=== PATIENT | female | born 1950 | race Caucasian/White ===

== ENCOUNTER 2024-12-21 00:20 | Day surgery (SDC) | payer MEDICARE, SELFPAY ==
[2024-12-11 14:51] VITALS: BMI 28.4
[2024-12-21 09:49] VITALS: BP 157/86; PULSE 86; RESP 18; TEMP 36.1; O2SAT 97; BMI 27.9
[2024-12-21] MEDS: LACTATED RINGERS 1,000 ML 150 ML IV CONT (09:57)
--- NOTE | 2024-12-21 10:16 | WPDANESEPPF ---
Anes - Initial Pre Proc Eval Procedure: Operation Date: 12/21/24 11:00 Proposed Procedures p Screening Colonoscopy - Demetris Alvarado MD Date/Time: 12/21/24 10:16 Surgeon: Demetris Alvarado MD Pre Op Diagnosis: Personal history of colon polyps, unspecified Patient Data Age: 74 Gender: F Height: 1.68 m Weight: 78.5 kg Last Vital Signs Temp 36.1 C L 12/21/24 09:49 Pulse 86 12/21/24 09:49 Resp 18 12/21/24 09:49 BP 157/86 H 12/21/24 09:49 Pulse Ox 97 12/21/24 09:49 O2 Del Method Room Air 12/21/24 09:49 Allergies Allergy/AdvReac Type Severity Reaction Status Date / Time CHLOE Inhibitors Allergy Intermediate Cough Verified 12/21/24 09:48 Home Medications ?Medication ?Instructions ?Recorded ?Confirmed ?Type escitalopram oxalate 20 mg tablet 10 mg (1/2 x 20 mg) PO DAILY #90 09/20/24 12/21/24 Rx (Lexapro) tabs losartan 25 mg tablet 25 mg PO DAILY #90 tabs 09/20/24 12/21/24 Rx rosuvastatin 20 mg tablet See Rx Instructions .Route 09/20/24 12/21/24 Rx .COMPLEX #90 tabs Patient hx anesthesia problems: none Family hx anesthesia problems: none Results Review: All pre-operative results and documents have been reviewed as part of the pre-operative evaluation. [facility] Past Medical History Medical History Overweight with body mass index (BMI) of 28 to 28.9 in adult Adult BMI 29.0-29.9 kg/sq m Diabetes type 2, controlled Family History Family History Mother Hypertension Family history of diabetes mellitus in first degree relative Family history of coronary artery disease Family history of malignant neoplasm of breast in first degree relative Father Cerebrovascular accident Malignant neoplasm of prostate Sibling Family history of diabetes mellitus in first degree relative Social History Social History Smoking packs per day: 1 Smoking cigarettes per day: 20.0 Years smoked: 10 Smoking pack-years: 10.00 Smoking status: Former smoker Second hand tobacco smoke exposure: No Alcohol intake: never Substance use: never Substance use type: does not use Lack of Transportation: No Lack of Food: Never True Current Housing: I Have Housing Concerned About Future Housing: No Difficulty Paying Gas/Electric Bills: No Difficulty Paying for Meds: No Currently Unemployed: No Education: High School Diploma/GED Difficulty w/ Childcare or Family Care: No Living arrangements: alone Spiritual care concerns: No Anes - Eval Final PreProcedure Day of Procedure 12/21/24 10:16 Patient weight: overweight Heart: regular rate and rhythm Lungs: clear to auscultation Airway: Mallampati scale class III Neurological: alert and oriented Last oral intake: >/= 8 hours ASA classification: III Emergent: no Anesthetic plan: proceed Anesthesia type and monitoring: general GIVS and standard monitoring Results Review: All pre-operative results and documents have been reviewed as part of the pre-operative evaluation. Informed Consent: The patient's anesthetic plan and its attendant risks and benefits were discussed with the patient/family/POA. Questions were solicited and answers provided to the satisfaction of the patient/family/POA.
--- NOTE | 2024-12-21 10:19 | PM.HPGS ---
History of Present Illness History of Present Illness Consent: Risks, benefits, and alternatives have been discussed and questions answered. Patient agrees to proceed with procedure. Chief complaint: Personal history of colon polyps, unspecified Narrative: Jasmin Reyes is a 74 year old female with colon polyp in 2017 Review of Systems Review of Systems: All systems reviewed & are unremarkable except as noted in HPI and below PMFSH Past Medical History Medical History (Updated 12/21/24 @ 10:19 by Demetris Alvarado MD) Colon polyp Overweight with body mass index (BMI) of 28 to 28.9 in adult Adult BMI 29.0-29.9 kg/sq m Diabetes type 2, controlled Family History Family History Mother Hypertension Family history of diabetes mellitus in first degree relative Family history of coronary artery disease Family history of malignant neoplasm of breast in first degree relative Father Cerebrovascular accident Malignant neoplasm of prostate Sibling Family history of diabetes mellitus in first degree relative Social History Social History Smoking packs per day: 1 Smoking cigarettes per day: 20.0 Years smoked: 10 Smoking pack-years: 10.00 Smoking status: Former smoker Second hand tobacco smoke exposure: No Alcohol intake: never Substance use: never Substance use type: does not use Lack of Transportation: No Lack of Food: Never True Current Housing: I Have Housing Concerned About Future Housing: No Difficulty Paying Gas/Electric Bills: No Difficulty Paying for Meds: No Currently Unemployed: No Education: High School Diploma/GED Difficulty w/ Childcare or Family Care: No Living arrangements: alone Spiritual care concerns: No Meds Home Medications and Allergies Home Medications ?Medication ?Instructions ?Recorded ?Confirmed ?Type escitalopram oxalate 20 mg tablet 10 mg (1/2 x 20 mg) PO DAILY #90 09/20/24 12/21/24 Rx (Lexapro) tabs losartan 25 mg tablet 25 mg PO DAILY #90 tabs 09/20/24 12/21/24 Rx rosuvastatin 20 mg tablet See Rx Instructions .Route 09/20/24 12/21/24 Rx .COMPLEX #90 tabs Allergies Allergy/AdvReac Type Severity Reaction Status Date / Time CHLOE Inhibitors Allergy Intermediate Cough Verified 12/21/24 09:48 Vital Signs Vital Signs - 24 hr 12/21/24 09:49 Temperature 97 F L Pulse Rate 86 Respiratory Rate 18 Blood Pressure 157/86 H Pulse Oximetry 97 Oxygen Delivery Room Air Exam Const: General: comfortable and no acute distress HENMT: Face/Nose/Sinus: Normal nares present Eyes: General: appearance normal, both eyes and all related structures Resp: Auscultation: clear to auscultation bilaterally Cardio: Rate: regular rate Rhythm: regular rhythm GI: Inspection: non-distended GI Palp: Yes Soft to palpation Skin: General skin exam: normal color Extrem: General: normal to inspection Psych: Mental Status: mental status grossly normal Assessment and Plan Assessment and plan (1) Family history of colon cancer in father: Code(s): Z80.0 - Family history of malignant neoplasm of digestive organs Status: Acute (2) Colon polyp: Code(s): K63.5 - Polyp of colon Status: Acute Assessment and Plan: colonoscopy
--- NOTE | 2024-12-21 10:50 | SUR.OPER ---
Excoriation to gluteal folds and bilateral buttocks noted intraoperatively.
[2024-12-21 10:52] VITALS: BP 102/74; PULSE 73; RESP 20; O2SAT 100
--- NOTE | 2024-12-21 10:52 | S_PTH ---
PATIENT: Jasmin Reyes LOC: [facility]#:[id number] AGE/SX: 74/F ROOM: RE12/21/[address]: Demetris Alvarado MD : 1950 BED: DIS: 12/21/2024 SPEC #: [id number] RECD: 12/21/24 11:29 STATUS: VIKA RENeri #: [id number] WENDI: 12/21/24 10:[address]: Demetris Alvarado DEPT: [facility] Surgical RECD BY: Rigo Negrete ENTERED: 12/21/24 11:30 SP TYPE: Surgical OTHR DR: Joni Morocho MD Tissues: A - Colon Polypectomy B - Colon Polypectomy C - Colon Polypectomy Procedures: Hematoxylin and Eosin Stain Gross and Microscopic Level 4
[2024-12-21 11:02] VITALS: BP 167/63; PULSE 66; RESP 20; O2SAT 100
[2024-12-21 11:12] VITALS: BP 168/69; PULSE 70; RESP 20; O2SAT 100
== END 2024-12-21 11:37 | disposition home or self-care (01) ==
PROVIDERS: PCP Family Medicine; Visit Provider Internal Medicine Gastroenterology
PROC: 0DJD8ZZ Inspection of Lower Intestinal Tract, Via Natural or Artificial Opening Endoscopic (ICD-10-PCS; CPT 45378; principal; 2024-12-21 11:00)
DX: Z12.11 Encounter for screening for malignant neoplasm of colon (principal); D12.2 Benign neoplasm of ascending colon; D12.3 Benign neoplasm of transverse colon; D12.4 Benign neoplasm of descending colon; K64.8 Other hemorrhoids; E11.9 Type 2 diabetes mellitus without complications; Z87.891 Personal history of nicotine dependence; Z80.3 Family history of malignant neoplasm of breast; Z80.42 Family history of malignant neoplasm of prostate; Z82.49 Family history of ischemic heart disease and other diseases of the circulatory system
CPT/HCPCS: 45390; 88305; J2704; J7120

== ENCOUNTER 2025-01-16 08:47 | Outpatient (CLI) | payer MEDICARE, SELFPAY ==
--- OUTSIDE RECORDS SUMMARY | 2025-01-16 09:14 | XMS_ITS | Clinical Summary ---
Author Organization [facility] Address [address], [address] [place] [address] Phone Care Team Providers Care Trimming Inspector Name Role Phone Joni Morocho MD Primary Care Provider [phone] Allergies No known active allergies Medications atorvastatin (LIPITOR) 10 MG Tablet Take 10 mg by mouth daily. Active escitalopram (LEXAPRO) 10 MG Tablet Take 10 mg by mouth daily. Active Fenofibrate 120 MG Tablet Take 134 mg by mouth daily. Active Cholecalciferol (VITAMIN D-3 SUPER STRENGTH) 2000 UNIT Tablet Take by mouth daily. Active BIOTIN FORTE PO Take by mouth. Active Active Problems Patient Care Coordination No te Formatting of this note migh t be different from the original. 07/29/16: Does not qualify for OCM. 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 Immunizations Immunization Administration Dates Next Due Influenza Vaccine greater than 3 yrs 06/01/2016 Pneumococcal Vaccine Adult - 23 Valent 7 Family History Medical History Relation Name Comments No Known Problems Brother Cancer Father prostate mets t o bone 70's Stroke Father Cancer Maternal Grandmother stomach cancer 50's Cancer Mother breast and bone 50's Depression Mother Diabetes Mother Heart Attack Mother Renal Failure Mother Thyroid Disease Mother Cancer Paternal Grandmother breast cancer 60's Diabetes Sister Lupus Sister Rheumatoid Arthritis Sister Relation Name Status Comments Brother Father Maternal Grandmother Mother Paternal Grandmother Sister Alive Social History Tobacco Use Types Packs/Day Years Used Date Smoking Tobacco: Former Cigarettes 0 Q uit: 12/12/1990 Alcohol Use Standard Drinks/Week Comments No 0 (1 standard drink = 0.6 oz pur e alcohol) Comments Unknown Sex and Gender Information Value Date Recorded Sex Assigned at Not on file Legal Sex Female 3:53 PM CDT Gender Identity Not on file Sexual Orientation Not on file Last Filed Vital Signs Vital Sign Reading Time Taken Comments Blood Pressure 138/72 07/29/2016 2:06 PM CDT Pulse 83 07/29/2016 2:06 PM CDT Temperature 36.7 C (98 F) 07/29/2016 2:06 PM CDT Respiratory Rate - - Oxygen Saturation 97% 07/29/2016 2:06 PM CDT Inhaled Oxygen Concentration - - Weight 90.3 kg (199 lb) 07/29/2016 2:06 PM CDT Height 165.1 cm (5' 5) 01/29/2016 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 Body Mass Index 33.12 01/29/2016 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 Plan of Treatment Health Maintenance Due Date Last Done Comments Hepatitis C Virus (HCV) Screening 1950 TdaP Immunization 1950 Cologuard 06/18/1995 Colonoscopy 06/18/1995 Colorectal Cancer Screening 06/18/1995 Immunochemical Fecal Occult Blood 06/18/1995 Zoster Immunization (1 of 2) 2000 Medicare Initial AWV [id number] 06/12/2016 Influenza Immunization (#1) 11/12/2024/2 03/2016, 11/28/2015 SARS-COV-2 Immunization ( season) 2024 Respiratory Syncytial Virus (RSV) Immunization (Adult) (1 - 1-dose 75+ series) 2025 Pneumococcal Immunization (5 0+ years) Completed 06/01/2016, 03/11/2016 Pneumococcal Immunization Combined Discontinued 06/01/2016, 03/11/2016 Hepatitis B Immunization Aged Out No longer eligible based on patient's age to complete this topic Human Papillomavirus (HPV) Immunization Aged Out No longer eligible based on patient's age to complete this topic Meningococcal Immunization (ACWY) Aged Out No longer eligible based on patient's age to complete this topic Rotavirus Immunization Aged Out No lo nger eligible based on patient's age to complete this topic Insurance * Guarantor: Jasmin Reyes Account Type Relation to Patient Date of Phone Billing Address Personal/Family Self 1950 [phone] (Work) [address] [place] [address] MEDICARE [employer] MEDICARE SUPP [employer] Care Teams Trimming Inspector Relationship Specialty Start Date End Date Joni Morocho MD [address] [place] [address] PCP - General Family Medicine 01/28/16
--- NOTE | 2025-01-16 09:36 | ECG_ITS ---
Test Date: 2025-01-16 09:49:19 Measurements Intervals [place] Rate: 71 P: 58 [place]: 191 QRS: -38 QRSD: 90 T: 56 QT: 395 QTc: 431 Interpretive Statements SINUS RHYTHM MARKED LEFT AXIS DEVIATION [QRS AXIS < -30] MINIMAL VOLTAGE CRITERIA FOR LVH, CONSIDER NORMAL VARIANT [MEETS CRITERIA IN ONE OF: R(aVL), S(V1), R(V5), R(V5/V6)+S(V1)] ABNORMAL ECG No previous ECG available for comparison Electronically Signed On 01-16-2025 14:40:10 OTOLARYNGOLOGY PHYSICIAN by Wojciech Hwang M.D.
[2025-01-16 10:15] LABS: INR 1.0; Prothrombin Time 13.3 Seconds (11.1-14.7)
[2025-01-16 10:16] LABS: Partial Thromboplastin Time 22.7 Seconds (22.3-36.8)
[2025-01-16 10:50] LABS: Carcinoembryonic Antigen 1.1 ng/mL (0.0-3.0)
== END 2025-01-16 08:48 | disposition home or self-care (01) ==
LOC: ANHSURGERY 08:51
PROVIDERS: Anesthesiology; PCP Family Medicine; Visit Provider Surgery
DX: K63.5 Polyp of colon (principal); E78.2 Mixed hyperlipidemia; I12.9 Hypertensive chronic kidney disease with stage 1 through stage 4 chronic kidney disease, or unspecified chronic kidney disease; N18.9 Chronic kidney disease, unspecified; R94.31 Abnormal electrocardiogram [ECG] [EKG]
CPT/HCPCS: 36415; 82378; 85610; 85730; 86850; 86900; 86901; 93005

== ENCOUNTER 2025-01-25 18:30 | Inpatient (IN) | payer MEDICARE, SELFPAY ==
[2025-01-16 08:59] VITALS: BP 123/61; PULSE 80; RESP 16; TEMP 37.3; O2SAT 98; BMI 28.3
--- NOTE | 2025-01-16 09:16 | PC.NURSE ---
[facility] has started construction of its new state of the art ER which will open Spring 2026. With this, we anticipate parking may be a challenge for some our surgical patients and families. Parking spaces are limited but are available for all Surgical, obstetrics, and ER patients sharing this lot. If you arrive and find you are having a hard time finding a parking space, please note that we understand the challenges, please drive around the hospital and park near Hospital Entrance 1. When you enter this entrance, you can ask a volunteer to direct or take you back to the surgical waiting area to check in. We appreciate everyone?s understanding of these expected challenges while we build for your future. Report to the Outpatient Waiting Room, entrance under the green pavilion located off [address], at time __0830am on date __01/25/25 . Planned Procedure Time: _1030am .? Time changes happen often and if your time is changed the preop area will call you the afternoon before. - You and your visitor will be asked to self-screen and do not enter if you have any COVID symptoms. Please call surgeon if you need to reschedule. - A mask is optional within the hospital at this time. Patients may have clear liquids (water, carbonated beverages, clear teas, apple juice) until 3 hours prior to surgery with a maximum of 20 ounces. - No food per Dr per Patrick- until time of surgery and no smoking, or chewing tobacco (or any form of nicotine). No chewing gum, candy or mints. (0730am) Take only the following medications with a SIP of water on the morning of surgery: Excitalopram & Antibiotics as ordered PREOP ( Ensure as ordered) DO NOT STOP ANY OF YOUR OTHER PRESCRIPTION MEDICATIONS PRIOR TO SURGERY EXCEPT THE FOLLOWING Hold all vitamins and supplements for 3 days per anesthesiologist. Date of last dose 01/21/25 Medications to discontinue per physician NONE Date to take last dose NONE Please no make-up, nail romansh, hairspray, perfume, deodorant, or body powder the day of surgery.? No jewelry (including any body piercings) or valuables the day of surgery, leave them at home.? Please take a shower or bath the night before, or the morning of, surgery with an antibacterial soap/HIBICLEANSE SCRUB-. Wear comfortable, loose fitting clothing.? Overnight bag - Jewelry must be removed prior to entering the operating room.? Rings and piercings that are not removed may be cut off. - The hospital will not accept responsibility for valuables.? - Please leave all valuables, including medications, at home the day of surgery. If you are going home after surgery, a licensed pickup driver must drive you home.? - NO public transportation without another adult if you receive anesthesia. - We recommend that an adult stay with you for 24 hours following discharge. - We also recommend that you do not drive, make important decision, drink alcoholic beverages, or take any drugs that were not prescribed by your health care provider for at least 24 hours after your discharge time. Follow any additional instructions given to you from your surgeon. Pt to get BOWEL PREP and ENSURE BUNDLE today from Dr Nguyen. Telephone instructions given to ____Patient and asked if any additional questions and then verbalized understanding. Patient advised to call surgeon office or pre surgery nurse liaison [phone] if any additional questions.
[2025-01-25] VITALS (9 sets, daily range): BP systolic 136–164; BP diastolic 51–89; PULSE 64–80; RESP 11–18; TEMP 36.3–36.9; O2SAT 93–100; BMI 27.9
--- NOTE | 2025-01-25 09:11 | WPDANESEPPF ---
Anes - Initial Pre Proc Eval Procedure: Operation Date: 01/25/25 10:30 Proposed Procedures p Robotic Assisted Laparoscopic Right Isaak-Colectomy, Possible Open - Mark Nguyen MD Date/Time: 01/25/25 09:11 Surgeon: Mark Nguyen MD Pre Op Diagnosis: right colon polyp with higrade dysplasia Patient Data Age: 74 Gender: F Height: 1.68 m Weight: 79.7 kg Last Vital Signs Temp 99.1 F 01/16/25 08:59 Pulse 80 01/16/25 08:59 Resp 16 01/16/25 08:59 BP 123/61 01/16/25 08:59 Pulse Ox 98 01/16/25 08:59 O2 Del Method Room Air 01/16/25 08:59 Allergies Allergy/AdvReac Type Severity Reaction Status Date / Time CHLOE Inhibitors Allergy Intermediate Cough Verified 01/16/25 08:57 Home Medications ?Medication ?Instructions ?Recorded ?Confirmed ?Type escitalopram oxalate 20 mg tablet 10 mg (1/2 x 20 mg) PO DAILY #90 09/20/24 01/16/25 Rx (Lexapro) tabs losartan 25 mg tablet 25 mg PO DAILY #90 tabs 09/20/24 01/16/25 Rx rosuvastatin 20 mg tablet See Rx Instructions .Route 09/20/24 01/16/25 Rx .COMPLEX #90 tabs calcium citrate 12,000 mg PO DAILY 01/02/25 01/25/25 History mecobalamin (vitamin B12) 1,000 1,000 mcg PO DAILY 01/02/25 01/25/25 History mcg chewable tablet gyvfutjeubls-Ry-mdag-minerals 18 1 tablet PO .qd 01/02/25 01/25/25 History mg-0.4 mg tablet ciprofloxacin HCl 500 mg tablet 500 mg PO .COMPLEX #1 tablet 01/03/25 01/16/25 Rx metronidazole 500 mg tablet 500 mg PO .COMPLEX #3 tabs 01/03/25 01/16/25 Rx Patient hx anesthesia problems: none Family hx anesthesia problems: none Results Review: All pre-operative results and documents have been reviewed as part of the pre-operative evaluation. 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 Perez Family History Family History Mother Hypertension Family history of diabetes mellitus in first degree relative Family history of coronary artery disease Family history of malignant neoplasm of breast in first degree relative Father Cerebrovascular accident Malignant neoplasm of prostate Sibling Family history of diabetes mellitus in first degree relative Social History Social History Smoking packs per day: 1 Smoking cigarettes per day: 20.0 Years smoked: 10 Smoking pack-years: 10.00 Smoking status: Former smoker Tobacco type: cigarettes Second hand tobacco smoke exposure: No Alcohol intake: never Substance use: never Substance use type: does not use Lack of Transportation: No Lack of Food: Never True Current Housing: I Have Housing Concerned About Future Housing: No Difficulty Paying Gas/Electric Bills: No Difficulty Paying for Meds: No Currently Unemployed: No Education: High School Diploma/GED Difficulty w/ Childcare or Family Care: No Living arrangements: alone Spiritual care concerns: No Anes - Eval Final PreProcedure Day of Procedure 01/25/25 09:11 Patient weight: normal Heart: regular rate and rhythm Lungs: clear to auscultation Airway: Mallampati scale class II Neurological: alert and oriented Last oral intake: >/= 8 hours ASA classification: III Emergent: no Anesthetic plan: proceed Anesthesia type and monitoring: general ETT and standard monitoring Results Review: All pre-operative results and documents have been reviewed as part of the pre-operative evaluation. Informed Consent: The patient's anesthetic plan and its attendant risks and benefits were discussed with the patient/family/POA. Questions were solicited and answers provided to the satisfaction of the patient/family/POA.
[2025-01-25] MEDS: ACETAMINOPHEN 500 MG TABLET 1000 MG PO (09:30)
[2025-01-25] MEDS: KETOROLAC 15 MG/ML VIAL (*BKC) IV PUSH (09:30)
[2025-01-25] MEDS: LACTATED RINGERS 1,000 ML 30 ML IV CONT ×3 (09:30→16:23)
--- NOTE | 2025-01-25 09:44 | WPDHPUPDATE1 ---
History and Physical Update Update Date/Time: 01/25/25 09:44 History and Physical has been reviewed, including an updated exam of the patient. There are NO changes in the patient's condition. Risks, benefits, and alternatives have been discussed and questions answered. Patient agrees to proceed with procedure.
[2025-01-25] MEDS: ALVIMOPAN 12 MG CAPSULE PO (10:00)
[2025-01-25] MEDS: ceFAZolin 2 GM in SODIUM CHLORIDE 0.9% IV 50 ML 100 ML IVPB (10:30)
[2025-01-25] MEDS: metroNIDAZOLE 500 MG/ISO 100ML 500 MG/100 ML BAG 100 MG IVPB (10:45)
[2025-01-25] MEDS: LIDO 1%/EPINEPHRINE 1:100,000 20 ML VIAL 30 ML INFILTRATE (11:29)
[2025-01-25] MEDS: BUPivacaine HCL 0.5% 10 ML AMP 30 ML INFILTRATE (11:30)
--- NOTE | 2025-01-25 15:01 | S_PTH ---
PATIENT: Jasmin Reyes LOC: [id number] U#:[id number] AGE/SX: 74/F ROOM: 344 RE01/25/[address]: Joey Metz MD : 1950 BED: 01 DIS: 01/27/2025 SPEC #: [id number] RECD: 01/28/25 07:28 STATUS: VIKA RENeri #: [id number] WENDI: 01/25/25 15:[address]: Mark Nguyen DEPT: [facility] Surgical RECD BY: Martha Buitrago ENTERED: 01/28/25 07:28 SP TYPE: Surgical OTHR DR: Joni Morocho MD Tissues: A - Colon Segment NonTumor Procedures: Hematoxylin and Eosin Stain Gross and Microscopic Level 5
[2025-01-25] MEDS: fentaNYL CITRATE INJ (*CRX) 100 MCG/2 ML VIAL 25 MCG IV PUSH ×4 (17:13→17:52)
--- NOTE | 2025-01-25 17:23 | W.PM.PROC2 ---
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 Surgeon Mark Nguyen MD Insulation Helper Danny Mclaughlin DO Anesthesia General Indications Patient is a 74-year-old female who recently had a colonoscopy showing 3 polyps in her colon. Two of the polyps, the 1st being in the mid transverse colon was completely excised and it was a benign villous adenoma. A sigmoid polyp was completely removed it was benign as well. 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 She presents now for a elective right hemicolectomy via a robotic assisted laparoscopic approach to remove the premalignant polyp. Findings The patient previously had a open cholecystectomy over 50 years ago done through a right paramedian incision. There were copious adhesions of omentum to the anterior abdominal wall and to the right half of the liver resulting in need for extensive abdominal adhesiolysis lasting for greater than 45minutes of the total procedure time. The patient did have an old tattoo in the mid transverse colon from a prior polyp excision during a colonoscopy. The most recent injection of ink in the right ascending colon was easily seen marking the pre malignant polyp which needed to be removed during this procedure. There did not appear to be any extension of a malignant process extending into the pericolic fat. No enlarged lymph nodes were seen in the ileocolic chain in the mesentery. No liver masses or peritoneal studding was seen. The specimen was opened on the back table after it was extracted from the abdomen. The polyp was seen in the mid to distal ascending right colon at approximately the hepatic flexure. It was approximately 6cm away from the distal bowel resection margin and greater than 10cm away from the proximal bowel resection margin. Description of Procedure After informed consent was obtained patient was brought to the operating room where she was placed in the supine position and general endotracheal anesthesia was administered. A Llamas catheter was placed decompress the bladder and orogastric tube was placed decompress the stomach. The abdomen was then prepped and draped usual sterile fashion. I 1st started by entering the abdomen the left upper quadrant utilizing a 5mm Optiview port. Once inside the abdomen insufflated to adequate pneumoperitoneum of 15mmHg of CO2. I could then see copious amounts of adhesions of the omentum to the anterior abdominal wall into the falciform ligament as well as the right lobe of the liver obscuring my view of the proximal part of the transverse colon. I then placed additional left-sided 8mm robotic trocar ports and then through these trocar ports utilizing standard laparoscopic roxi which were energized I proceeded to perform an extensive adhesiolysis of the omentum off of the epigastric region of the anterior abdominal wall and falciform ligament. Once this was done I then placed a 12mm robotic trocar port left upper quadrant and switched out the 5mm trocar port to an 8mm robotic trocar port. The [employer] robot was then brought to the patient's bedside and the robotic arms were attached robotic ports. I then sent down the robotic console to perform further adhesiolysis of the omentum off of the right lobe of the liver to further visualize the distal right ascending colon and proximal transverse colon. Utilizing the robotic vessel sealer I then proceeded to divide omental adhesions to the falciform ligament and to the edge of the right lobe liver which extended down into the gallbladder fossa which the omentum was very adherent to due to the previous open cholecystectomy. This adhesiolysis took at least 45minutes of the total operative time to perform. Once this was done I then turned my attention towards resecting the right colon. The small bowel was moved to the left side of the abdomen and down into the pelvis. This exposed the mesentery to the right colon and cecum. Then with traction with a robotic grasper on to the cecum the mesentery was placed on tension and I was able to identify the ileocolic pedicle. Utilizing combination of robotic roxi and robotic vessel sealer dissection I was able to circumferentially dissect out the ileocolic pedicle and divided it with a vascular load to the robotic stapler. I then proceeded to dissect laterally underneath the ascending colon to the avascular plane between the mesentery and Gerota's fascia. I extended the dissection through the mesentery to the distal ascending colon hepatic flexure under identified the 2nd portion of duodenum and protected this without injury throughout the rest of the procedure. I then saw that the proximal transverse colon just after the hepatic flexure was well away from the ink that marked the polyp and after dividing and mobilizing the omentum off of the proximal transverse colon utilizing the LigaSure device and made a defect through the mesentery to the proximal 1/3 of the transverse colon utilizing the vessel sealer. Through this mesenteric defect I then introduced a 60mm robotic HOMER stapler and then divided proximal transverse colon. I then turned my attention towards division of the ileum. I mobilized terminal ileum utilizing the vessel sealer and then made a defect through the mesentery to the terminal ileum about 10cm proximal to the ileocecal valve. I then divided the terminal ileum with a blue reload to the robotic stapler. I then proceeded to further divide the mesentery between the 2 bowel resection points. I carefully avoided injury to the 2nd portion of duodenum during this division of the mesentery. The right branch of the middle colic artery was divided with the vessel sealer. I did not appreciate any enlarged lymph nodes along the ileocolic chain or the mesentery to the right colon. Once the mesentery was completely divided the lateral peritoneal attachments to the right colon were divided with the vessel sealer the terminal ileum, cecum, right ascending colon, and proximal transverse colon with the attached mesentery was then placed into the pelvis. I then had Anesthesia give the patient 3cc of ICG dye intravenously. Then utilizing firefly on the [employer] robot I was able to assess perfusion to staple lines of I bowel resection lines. There was good perfusion to the staple lines on both the terminal ileum and the transverse colon. I then brought the 2 ends of the bowel together in a [id number] isoperistaltic fashion. Stay sutures were placed with 3 0 Vicryl sutures robotically to approximate the 2 ends of the bowel and then an enterotomy was made in the small bowel and then the transverse colon utilizing energized roxi. A reload to the 60mm HOMER robotic stapler was then used to create a common channel between the 2 ends of the bowel. The resulting enterotomy on top of the anastomosis was then closed utilizing a running 3-0 absorbable V lock suture in 2 layers. I once again checked perfusion of the anastomosis and there appeared to be good perfusion under firefly. I then checked and there was no significant bleeding and the anastomosis was under no tension. I then proceeded to place a long [place] laparoscopic grasper onto the end of the resected terminal ileum and right colon. We then had the de [employer] robot undocked from the patient's bedside and robotic instruments removed from the abdomen. I then scrubbed back into the procedure and made a small 5cm low transverse Pfannenstiel incision and dissected down through the subcutaneous tissue electrocautery. Once we reached the anterior rectus fascia this was incised longitudinally with electrocautery and the muscle fibers were then split until we reached the transversalis fascia and peritoneum. This was opened with electrocautery and then a wound protector was placed into the abdomen to aid with retraction. We then delivered the resected end of the terminal ileum up through the wound protector and then very carefully removed the resected specimen out of the abdomen. On the back table I then proceeded to open the specimen identified the polyp which was approximately 6cm proximal to the distal colonic resection margin and greater than 10cm distal to the terminal ileum resection margin. The specimen was then passed off table sent to pathology for examination. I then proceeded to irrigate out the incision and hemostasis was good. The incision was then closed with a 0 PDS suture placed in the anterior rectus fascia. The subcutaneous tissues then irrigated sterile saline solution and closed with interrupted 3-0 Vicryl sutures. Skin edges were approximated utilizing a running subcuticular 4-0 Monocryl suture. We then insufflated the abdomen reach it pneumoperitoneum. Then utilizing standard laparoscopic we then proceeded to place transfascial sutures with a suture assist device under direct visualization to close the 12mm left upper quadrant trocar port fascial defect. All the port sites were then closed utilizing a running subcu 4-0 Monocryl suture. Skin glue was applied. Incision then injected with 1% lidocaine mixed with 0.5% Marcaine with epinephrine for postoperative pain relief. The patient tolerated the procedure well no complications. All sponges, needles, and instrument counts were correct at the end procedure. EBL was _50__cc. The patient was awakened and taken to recovery in stable and satisfactory condition. Implants None Estimated Blood Loss 50 IV Fluids 2,500 Urine Output 100 Drains No Packing No Pathology Yes ( small amount of terminal ileum, cecum, right ascending colon, and proximal transverse colon sent to pathology) Complications No immediate complications Condition Stable Disposition PACU [facility] Billing Surgery - Charge Forward: Surgery Billing
--- NOTE | 2025-01-25 18:17 | ADMGEN ---
This patient, Jasmin Reyes, was admitted to Medical Room 344-01. Patient/family oriented to hospital policies and general routines including ID bracelet, bed and alarms, visiting hours, pain management, procedures, bathroom and other care routines, personal items, smoking policy, room service/diet, and visiting hours. Information on how to activate the Rapid Response Team has been discussed. Patient/Family are encouraged to report perceived risks to care and to ask questions if they do not understand what they are told or what they should do.
[2025-01-25] MEDS: LACTATED RINGERS 1,000 ML 130 ML IV CONT (18:44)
[2025-01-25] MEDS: THERAPEUTIC MULTIVITAMINS/MINERALS TAB (*BKC) 1 TABLET PO (18:44)
[2025-01-25] MEDS: IBUPROFEN IV 800 MG/200 ML 800 MG/200 ML BAG 400 MG IVPB (18:45)
[2025-01-25] MEDS: ceFAZolin 1 GM in SODIUM CHLORIDE 0.9% IV 50 ML 100 ML IVPB (19:48)
[2025-01-25] MEDS: ROSUVASTATIN 20 MG TABLET BY MOUTH (21:40)
[2025-01-26] MEDS: oxyCODONE HCL (*CRX) 5 MG TAB IR PO (00:31)
[2025-01-26] MEDS: IBUPROFEN IV 800 MG/200 ML 800 MG/200 ML BAG 400 MG IVPB ×3 (02:29→18:06)
[2025-01-26] MEDS: LACTATED RINGERS 1,000 ML 130 ML IV CONT ×2 (02:30→12:15)
[2025-01-26] MEDS: ceFAZolin 1 GM in SODIUM CHLORIDE 0.9% IV 50 ML 100 ML IVPB ×2 (03:45→11:07)
[2025-01-26 04:35] VITALS: BP 152/67; PULSE 66; RESP 16; TEMP 36.5; O2SAT 96
[2025-01-26 05:31] LABS: Hematocrit 32.8 % (37.0-47.0); Hemoglobin 10.6 g/dL (12.0-15.0); Mean Corpuscular HGB Conc 32.3 g/dl (32-36); Mean Corpuscular Hemoglobin 29.4 pg (26-34); Mean Corpuscular Volume 90.9 fl (80-100); Platelet Count Result 166 k/mm3 (150-375); Red Blood Count 3.61 M/mm3 (4.2-5.4); White Blood Count 11.5 K/mm3 (4.5-10.0)
[2025-01-26 05:54] LABS: Anion Gap 5 mmol/L (4-12); Blood Urea Nitrogen 19 mg/dL (7-17); Calcium 8.7 mg/dL (8.4-10.2); Carbon Dioxide 26 mmol/L (22-30); Chloride 106 mmol/L (98-107); Estimated CRCL calculation 40 ml/min; Estimated Glomerular Filt Rate 45; Glucose 147 mg/dL (65-110); Potassium 4.7 mmol/L (3.4-5.0); Sodium 137 mmol/L (137-145)
[2025-01-26] MEDS: CYANOCOBALAMIN 1,000 MCG TABLET 1000 MCG PO (09:12)
[2025-01-26] MEDS: THERAPEUTIC MULTIVITAMINS/MINERALS TAB (*BKC) 1 TABLET PO (09:12)
[2025-01-26] MEDS: PANTOPRAZOLE 40 MG TABLET PO (09:12)
[2025-01-26] MEDS: ESCITALOPRAM OXALATE 10 MG TABLET PO (09:12)
[2025-01-26] MEDS: LOSARTAN POTASSIUM 25 MG TABLET PO (09:12)
[2025-01-26] MEDS: LIDOCAINE 5% PATCH 1 PATCH TRANSDERM (09:13)
[2025-01-26 09:15] VITALS: O2SAT 96
--- NOTE | 2025-01-26 10:07 | PM.PNGS ---
Progress Note: A&P Assessment and Plan (1) History of partial colectomy: Code(s): Z90.49 - Acquired absence of other specified parts of digestive tract Status: Acute Assessment and Plan: Doing great postop day 1. Will advance to full liquids. Increase ambulation. Patient reported some hematuria. I reassured her that this was most likely from the urinary catheter during surgery. I will go ahead and check a urinalysis. I expect this will go away within another 24 hours. Doing very well. (2) Colon polyp: Qualifiers: Colon polyp type: adenomatous Colon location: ascending Qualified Code(s): D12.2 - Benign neoplasm of ascending colon Code(s): K63.5 - Polyp of colon Status: Chronic Subjective Subjective Date/Time Seen: 01/26/25 10:07 Post Op day: 1 Patient reports: no new complaints, pain is less (Very little pain), tolerating liquids well, voiding w/o difficulty (But noticed some brown grit and blood in her urine), no flatus, no bowel movement and afebrile Exam Const: General: cooperative, comfortable and awake Orientation/consciousness: patient oriented x3 and No confusion GI: Inspection: non-distended, incision (Dry and healing), scar and no visible herniation GI Palp: Yes Soft to palpation and Yes Tenderness to palpation present (GI) (Mild appropriate tenderness) Auscultation: absent bowel sounds Objective Data Vital Signs Vital Signs: Vital Signs - 24 hr 01/25/25 16:07 01/25/25 16:20 01/25/25 16:35 Temperature 36.3 C L Pulse Rate 64 78 80 Respiratory Rate 11 L 13 13 Blood Pressure 139/51 L 153/52 H 164/63 H Pulse Oximetry 100 100 100 Oxygen Delivery Simple Face Mask Simple Face Mask Room Air Oxygen Flow Rate 8 8 01/25/25 16:50 01/25/25 17:05 01/25/25 17:20 Temperature Pulse Rate 75 67 75 Respiratory Rate 15 12 16 Blood Pressure 159/64 H 144/73 H 136/89 Pulse Oximetry 93 94 96 Oxygen Delivery Room Air Room Air Room Air Oxygen Flow Rate 01/25/25 17:50 01/25/25 20:00 01/25/25 21:00 Temperature 36.6 C Pulse Rate 74 77 Respiratory Rate 14 18 Blood Pressure 147/68 H 142/65 H Pulse Oximetry 95 98 Oxygen Delivery Room Air Room Air Oxygen Flow Rate 01/26/25 04:35 Temperature 36.5 C Pulse Rate 66 Respiratory Rate 16 Blood Pressure 152/67 H Pulse Oximetry 96 Oxygen Delivery Oxygen Flow Rate Intake/Output Intake/Output: Intake & Output 01/23/25 01/24/25 01/25/25 01/26/25 23:59 23:59 23:59 23:59 Intake Total 5500 1250 Output Total 100 Balance 5400 1250 Meds/Results Medications: Active Medications Generic Name Dose Route Start Last Admin Trade Name Freq PRN Reason Stop Dose Admin Acetaminophen 1,000 mg 01/25/25 17:54 Acetaminophen 500 Mg Tablet PO Q6H PRN Mild Pain (1-3) or Fever Hydrocodone Bitart/Acetaminophen 1 tab 01/25/25 17:54 Hydrocodone/Acetaminophen (*Crx) 5-325 Mg Tablet PO Q4H PRN Pain Rated 4-6 Alvimopan 12 mg 01/26/25 09:00 Alvimopan 12 Mg Capsule PO 01/27/25 09:01 Q12HR LUIS Cyanocobalamin 1,000 mcg 01/26/25 09:00 01/26/25 09:12 Cyanocobalamin 1,000 Mcg Tablet PO 1,000 mcg DAILY LUIS Administration Enoxaparin Sodium 40 mg 01/27/25 09:00 Enoxaparin 40 Mg/0.4 Ml Syringe SUB-Q DAILY LUIS Enoxaparin Sodium 40 mg 01/26/25 10:30 Enoxaparin 40 Mg/0.4 Ml Syringe SUB-Q 01/26/25 10:31 ONCE ONE Escitalopram Oxalate 10 mg 01/26/25 09:00 01/26/25 09:12 Escitalopram Oxalate 10 Mg Tablet PO 10 mg DAILY LUIS Administration Ibuprofen 800 mg in 200 mls @ 400 mls/hr 01/25/25 18:00 01/26/25 03:00 Caldolor 800 Mg/200 Ml IVPB Infused Q8H LUIS Infusion Cefazolin Sodium 1 gm/ Sodium 50 mls @ 100 mls/hr 01/25/25 19:00 01/26/25 04:20 Chloride IVPB 01/26/25 11:29 Infused Q8H LUIS Infusion Lactated Ringer's 1,000 mls @ 130 mls/hr 01/25/25 17:54 01/26/25 02:30 Lr - Lactated Ringers Iv IV CONT 130 mls/hr .Q7H42M LUIS Administration Ibuprofen 800 mg in 200 mls @ 400 mls/hr 01/26/25 09:59 Caldolor 800 Mg/200 Ml IVPB Q6H PRN Breakthrough Pain Rated 1-3 or NPO Lidocaine 1 patch 01/26/25 09:00 01/26/25 09:13 Lidocaine 5% Patch TRANSDERM 1 patch DAILY LUIS Administration Losartan Potassium 25 mg 01/26/25 09:00 01/26/25 09:12 Losartan Potassium 25 Mg Tablet PO 25 mg DAILY LUIS Administration Miscellaneous Information 0 each 01/25/25 00:01 Calcium 12,000mg Clarify Dose XX 02/24/25 00:00 CLARIFY LUIS Morphine Sulfate 1 mg 01/26/25 09:59 Morphine Sulfate (*Crx) 4 Mg/Ml Inj IV PUSH Q2H PRN Breakthrough Pain Rated 4-6 or NPO Morphine Sulfate 2 mg 01/26/25 09:59 Morphine Sulfate (*Crx) 4 Mg/Ml Inj IV PUSH Q2H PRN Breakthrough Pain Rated 7-10 or NPO Multivitamins/Calcium 1 tablet 01/25/25 17:54 01/26/25 09:12 Therapeutic Multivitamins/Minerals Tab (*Bkc) PO 1 tablet DAILY LUIS Administration Naloxone HCl 0.1 mg 01/26/25 09:59 Naloxone Hcl 0.4 Mg/Ml Vial IV PUSH Q2M PRN Opiate Reversal Non-Formulary Medication 12,000 mg 01/26/25 09:00 Calcium Citrate PO 02/25/25 08:59 DAILY [facility] Ondansetron HCl 4 mg 01/25/25 17:54 Ondansetron Inj 4 Mg/2 Ml Vial IV PUSH Q6H PRN Nausea And Vomiting Oxycodone HCl 5 mg 01/25/25 17:54 01/26/25 00:31 Oxycodone Hcl (*Crx) 5 Mg Tab Ir PO 5 mg Q6H PRN Administration Pain Rated 7-10 Pantoprazole Sodium 40 mg 01/26/25 09:00 01/26/25 09:12 Pantoprazole 40 Mg Tablet PO 40 mg QAM LUIS Administration Rosuvastatin Calcium 20 mg 01/25/25 21:00 01/25/25 21:40 Rosuvastatin 20 Mg Tablet BY MOUTH 20 mg HS LUIS Administration Labs Labs: Laboratory Results - last 24 hr 01/26/25 05:09 WBC 11.5 H RBC 3.61 L Hgb 10.6 L Hct 32.8 L MCV 90.9 MCH 29.4 MCHC 32.3 RDW 13.1 Plt Count 166 MPV 9.9 Sodium 137 Potassium 4.7 Chloride 106 Carbon Dioxide 26 Anion Gap 5 BUN 19 H Creatinine 1.17 H Estim Creat Clear Calc 40 Estimated GFR 45 L Glucose 147 H Calcium 8.7
[2025-01-26 11:26] LABS: Add Urine Microscopic? NO; Appearance Urine Clear (Clear); Glucose Urine UA Negative (Negative); Leukocyte Esterase Ur Negative LEU/UL (Negative); Nitrate Urine Negative (Negative); Specific Grav Ur 1.008 (1.001-1.035)
[2025-01-26] MEDS: ALVIMOPAN 12 MG CAPSULE PO ×2 (12:07→21:13)
[2025-01-26] MEDS: HYDROcodone/acetaminophen (*CRX) 5-325 MG TABLET 1 TAB PO (12:14)
[2025-01-26] MEDS: ENOXAPARIN 40 MG/0.4 ML SYRINGE SUB-Q (12:18)
[2025-01-26 14:00] VITALS: BP 134/51; PULSE 69; RESP 20; TEMP 36.2; O2SAT 96
[2025-01-26] MEDS: LACTATED RINGERS 1,000 ML 80 ML IV CONT (18:09)
[2025-01-26 21:02] VITALS: BP 138/58; PULSE 64; RESP 18; TEMP 36.9; O2SAT 95
[2025-01-26] MEDS: ROSUVASTATIN 20 MG TABLET BY MOUTH (21:13)
[2025-01-27 01:52] VITALS: O2SAT 94
[2025-01-27] MEDS: IBUPROFEN IV 800 MG/200 ML 800 MG/200 ML BAG 400 MG IVPB ×2 (02:48→09:52)
[2025-01-27 03:49] VITALS: BP 171/64; PULSE 77; RESP 18; TEMP 36.4; O2SAT 93
[2025-01-27 05:46] LABS: Hematocrit 30.8 % (37.0-47.0); Hemoglobin 9.9 g/dL (12.0-15.0); Mean Corpuscular HGB Conc 32.1 g/dl (32-36); Mean Corpuscular Hemoglobin 29.4 pg (26-34); Mean Corpuscular Volume 91.4 fl (80-100); Platelet Count Result 134 k/mm3 (150-375); Red Blood Count 3.37 M/mm3 (4.2-5.4); White Blood Count 7.6 K/mm3 (4.5-10.0)
[2025-01-27 06:01] LABS: Anion Gap 5 mmol/L (4-12); Blood Urea Nitrogen 14 mg/dL (7-17); Calcium 8.0 mg/dL (8.4-10.2); Carbon Dioxide 25 mmol/L (22-30); Chloride 109 mmol/L (98-107); Estimated CRCL calculation 43 ml/min; Estimated Glomerular Filt Rate 49; Glucose 142 mg/dL (65-110); Potassium 3.9 mmol/L (3.4-5.0); Sodium 139 mmol/L (137-145)
[2025-01-27] MEDS: BUMETANIDE INJ 1 MG/4 ML VIAL 2 MG IV PUSH (09:45)
[2025-01-27] MEDS: ENOXAPARIN 40 MG/0.4 ML SYRINGE SUB-Q (09:46)
[2025-01-27] MEDS: THERAPEUTIC MULTIVITAMINS/MINERALS TAB (*BKC) 1 TABLET PO (09:47)
[2025-01-27] MEDS: ESCITALOPRAM OXALATE 10 MG TABLET PO (09:47)
[2025-01-27] MEDS: POTASSIUM CHLORIDE 20 MEQ ER TABLET 40 MEQ PO (09:47)
[2025-01-27] MEDS: LOSARTAN POTASSIUM 25 MG TABLET PO (09:47)
[2025-01-27] MEDS: PANTOPRAZOLE 40 MG TABLET PO (09:47)
[2025-01-27] MEDS: CYANOCOBALAMIN 1,000 MCG TABLET 1000 MCG PO (09:47)
[2025-01-27] MEDS: ALVIMOPAN 12 MG CAPSULE PO (09:48)
[2025-01-27] MEDS: LIDOCAINE 5% PATCH 1 PATCH TRANSDERM (09:48)
--- NOTE | 2025-01-27 10:17 | P.DS_ITS ---
DS: Admitting Diagnosis Discharge Date 01/27/2025 Admitting Diagnosis Ascending colon polyp with dysplasia DS: Discharge Diagnosis Discharge Diagnosis (1) Colon polyp: Qualifiers: Colon polyp type: adenomatous Colon location: ascending Qualified Code(s): D12.2 - Benign neoplasm of ascending colon Code(s): K63.5 - Polyp of colon Status: Chronic (2) History of partial colectomy: Code(s): Z90.49 - Acquired absence of other specified parts of digestive tract Status: Acute Assessment and Plan: Robotic right colectomy 01/25/[address] Nguyen DS: Summary Hospital Course Hospital Course: Patient had home bowel preparation and was taken to surgery on the day of admission, 01/25/2025. She underwent robotic right colectomy with anastomosis per Dr. Nguyen. The surgery went well. She was voiding without difficulty and tolerating liquid diet on postop day 1. Her diet was advanced to soft. She was having bowel movements and comfortable with minimal analgesics on postop day 2. She was able to be discharged on postop day 2. In good condition. Status at Discharge Functional status at discharge: independent ambulation Overall status at discharge: patient is progressing back to baseline Time Spent with Patient Time attestation: Total time spent providing and/or coordinating discharge services: Time spent: Less than 30 minutes Exam GI: Inspection: non-distended and incision (Dry and healing well) GI Palp: Yes Soft to palpation and No Tenderness to palpation present (GI) Auscultation: normoactive bowel sounds DS: Data Data Completed and Pending Pending studies at discharge: Pending at discharge 01/25/25 15:01 Surgical [PTH] Routine Labs on day of discharge: Labs from last 24 hours 01/27/25 01/26/25 05:20 11:19 WBC 7.6 RBC 3.37 L Hgb 9.9 L Hct 30.8 L MCV 91.4 MCH 29.4 MCHC 32.1 RDW 13.2 Plt Count 134 L MPV 10.1 Sodium 139 Potassium 3.9 Chloride 109 H Carbon Dioxide 25 Anion Gap 5 BUN 14 D Creatinine 1.09 H Estim Creat Clear Calc 43 Estimated GFR 49 L Glucose 142 H Calcium 8.0 L Urine Color Yellow Urine Appearance Clear Urine pH 5.5 Ur Specific [place] 1.008 Urine Protein Negative Urine Glucose (UA) Negative Urine Ketones Negative Ur Blood (Man) Negative Urine Nitrate Negative Urine Bilirubin Negative Urine Urobilinogen 0.2 Ur Leukocyte Esterase Negative Discharge Plan Discharge Attending physician on discharge: Mark Nguyen Discharging Clinician: Joey Metz Anticipated Discharge Date/Time: 01/27/25 10:22 Patient Disposition: Home Activity: may shower, no straining and as tolerated Diet: regular Wound Care Instructions: incision open to air Discharge Instructions: * Ambulate 3-4 x per day and as tolerated. * No lifting over 15-20lbs. * May bathe or shower. * Stairs are OK. * May drive a car in 3 days. * Tried to use Tylenol or [id number] ibuprofen for postoperative pain. Use prescription pain medication only if needed. Patient Instructions: Antibiotic Form Patient Language: Upper Sorbian Stand Alone Forms: General Discharge Information Follow-up/Referrals: Mark Nguyen MD [Physician, General Surgery] - 2 Weeks Discharge Medications: New oxycodone-acetaminophen [Percocet] 5-325 mg tablet 0.5 - 1 tablet PO Q4H PRN (Reason: pain) Qty: 10 0RF potassium chloride 20 mEq tablet extended release 20 meq PO DAILY Qty: 7 0RF Continued iuofpwlhduia-Ka-bmcr-minerals 18-0.4 mg tablet 1 tablet PO .qd calcium citrate 250 mg calcium tablet 12,000 mg PO DAILY mecobalamin (vitamin B12) 1,000 mcg tablet,chewable 1,000 mcg PO DAILY escitalopram oxalate [Lexapro] 20 mg tablet 10 mg PO DAILY Qty: 90 1RF losartan 25 mg tablet 25 mg PO DAILY Qty: 90 1RF rosuvastatin 20 mg tablet See Rx Instructions .ROUTE .COMPLEX Qty: 90 1RF Dose Instruction: Take 1 tablet by mouth once daily Rx Instructions: Take 1 tablet by mouth once daily Discontinued metronidazole 500 mg tablet 500 mg PO .COMPLEX Qty: 3 0RF Rx Instructions: 500 mg orally Take 1 tablet by mouth at 1pm, 2pm, 11pm the day before surgery.; ciprofloxacin HCl 500 mg tablet 500 mg PO .COMPLEX Qty: 1 0RF Rx Instructions: 500 mg orally Take 1 tablet by mouth at 2:00pm the day before surgery.; Other Ambulatory Orders: Basic Metabolic Panel (Routine) Timeframe: 20250131 Location: Determined by Patient Ordered By: Joey Metz Complete Blood Count no Diff (Routine) Timeframe: 20250131 Location: Determined by Patient Ordered By: Joey Metz Date of admission: 01/25/25 18:30 Primary Care Provider: Joni Morocho Admitting Provider: Mark Nguyen Attending physician on admission: Mark Nguyen Condition: Improved
== END 2025-01-27 12:34 | disposition home or self-care (01) | DRG 331 ==
LOC: ANHSURGERY 20:26 → ANH3MED 20:26
PROVIDERS: Admitting Provider Surgery; PCP Family Medicine; Visit Provider Surgery
PROC: 0DTF4ZZ Resection of Right Large Intestine, Percutaneous Endoscopic Approach (ICD-10-PCS; principal; 2025-01-25 10:30)
DX: D12.2 Benign neoplasm of ascending colon (principal); E11.9 Type 2 diabetes mellitus without complications; R31.9 Hematuria, unspecified; Z87.891 Personal history of nicotine dependence; Z90.49 Acquired absence of other specified parts of digestive tract
CPT/HCPCS: 36415; 80048; 81003; 85027; 88307; J0690; A9270; J1100; J1171; J1596; J1650; J1741; J1836; J1885; J1939; J2003; J2004; J2405; J2704; J3010; J7030; J7120

== ENCOUNTER 2025-02-05 15:20 | Outpatient (CLI) | payer MEDICARE, SELFPAY ==
[2025-02-05 16:01] LABS: Hematocrit 42.1 % (37.0-47.0); Hemoglobin 13.9 g/dL (12.0-15.0); Mean Corpuscular HGB Conc 33.0 g/dl (32-36); Mean Corpuscular Hemoglobin 29.6 pg (26-34); Mean Corpuscular Volume 89.6 fl (80-100); Platelet Count Result 398 k/mm3 (150-375); Red Blood Count 4.70 M/mm3 (4.2-5.4); White Blood Count 15.0 K/mm3 (4.5-10.0)
[2025-02-05 16:11] LABS: Anion Gap 12 mmol/L (4-12); Blood Urea Nitrogen 21 mg/dL (7-17); Calcium 10.6 mg/dL (8.4-10.2); Carbon Dioxide 25 mmol/L (22-30); Chloride 103 mmol/L (98-107); Estimated Glomerular Filt Rate 30; Glucose 111 mg/dL (65-110); Potassium 4.4 mmol/L (3.4-5.0); Sodium 140 mmol/L (137-145)
--- OUTSIDE RECORDS SUMMARY | 2025-02-05 17:01 | XMS_ITS | Clinical Summary ---
Author Organization [facility] Address [address] [place] [address] Phone Care Team Providers Care Emr Analyst Name Role Phone Joni Morocho MD Primary Care Provider [phone] Allergies No known active allergies Medications rosuvastatin (CRESTOR) 20 MG tablet Take 10 mg by mouth 1 (one) time each day Active escitalopram (LEXAPRO) 20 MG tablet Take 20 mg by mouth 1 (one) time each day Active losartan (COZAAR) 25 MG tablet Take 25 mg by mouth 1 (one) time each day Active ASHWAGANDHA GUMMIES PO Take by mouth 1000mg + 100mg Active cyanocobalamin (VITAMIN B-12) 1000 MCG tablet Take 1,000 mcg by mouth 1 (one) time each day Active CALCIUM CITRATE PO Take by mouth Active Multiple Vitamins-Mineral s (VITAFUSION MULTI WOMENS PO) Take by mouth Active Active Problems Problem Noted Date Diagnosed Date Impaired fasting glucose 11/28/2020 Hyperlipidemia 11/22/2019 Stage 3a chronic kidney disease 12/25/2018 Resolved Problems Problem Noted Date Diagnosed Date Resolved Date Hypercalcemia 12/25/2018 01/05/2022 Other microscopic hematuria 07/09/2016 09/22/2018 Encounters Date Type Department Care Team Description 01/01/2025 12:20 PM CDT Office Visit [facility] [address], [address] [place] [address] Wally Arana MD Stage 3a chronic kidney disease (Primary Dx); Other hyperlipidemia from Last 3 Months Immunizations Immunization Administration Dates Next Due Influenza TIV (IM) 01/01/2015 Family History Medical History Relation Comments Cancer Father Stroke Father Cancer Maternal Grandmother Coronary arteriosclerosis Mother Diabetes mellitus Mother Hypertensive disorder Mother Malignant neoplastic disease Mother Cancer Paternal Grandmother Diabetes mellitus Sibling Arthritis Sister Diabetes Sister Relation Status Comments Father Maternal Grandmother Mother Paternal Grandmother Sibling Sister Social History Tobacco Use Types Packs/Day Years Used Date Smoking Tobacco: Former Smokeless Tobacco: Never Tobacco Cessation:Counseling Given: Not Answered Alcohol Use Standard Drinks/Week Comments Never 0 (1 standard drink = 0.6 oz pur e alcohol) AUDIT-C Answer Date Recorded Frequency of Alcohol Consumption Never 09/22/2018 Average Number of Drinks Not on file Frequency of Binge Drinking Not on file 09/11 Comments Unknown Sex and Gender Information Value Date Recorded Sex Assigned at Not on file Legal Sex Female 8:53 AM [facility] Gender Identity Not on file Sexual Orientation Not on file Last Filed Vital Signs Vital Sign Reading Time Taken Comments Blood Pressure 133/56 01/01/2025 12:18 PM CDT Pulse 94 01/01/2025 12:18 PM CDT Temperature - - Respiratory Rate - - Oxygen Saturation - - Inhaled Oxygen Concentration - - Weight 80.3 kg (177 lb) 01/01/2025 12:18 PM CDT Height 167.6 cm (5' 6) 01/01/2025 12:18 PM CDT Body Mass Index 28.57 01/01/2025 12:18 PM CDT Plan of Treatment Upcoming Encounters Date Type Department Care Team (Late st Contact Info) Description 12/31/2025 12:20 PM CDT Office Visit [facility] [address], [address] [place], [place] [phone] [place] [address] [place] [address] Health Maintenance Due Date Last Done Comments Diabetic Foot Exam 1960 Ophthalmology Exam 1960 Pneumococcal PPSV23/PCV13 65 + Years / High and Highest Risk (2 of 4 - PPSV23, PCV20, or PCV21) 01/22/2020 11/27/2019, 03/11/2016 COVID-19 Vaccine (4 - 2024-2 6 season) 2024 01/30/2021, 05/16/2020, 04/18/2020 Influenza Vaccine (#1) 2024 3, 11/27/2019, 11/27/2019, Additional history exists Insurance MEDICARE PM INTERFACED INSURANCE [id number] [id number] Care Teams Emr Analyst Relationship Specialty Start Date End Date Joni Morocho MD [address] [place] [address] PCP - General 09/28/18
--- OUTSIDE RECORDS SUMMARY | 2025-02-05 17:01 | XMS_ITS | Clinical Summary ---
Author Organization [facility] Address [address] [place] [address] Care Team Providers Care Pediatric Licensed Practical Nurse Name Role Phone Miko Morocho MD Primary Care Provider [phone] Allergies Active Allergy Reactions Criticality Noted Date Comments Lisinopril Cough 02/04/2018 Medications escitalopram 20 MG tablet Take 20 mg by mouth. 01/13/2018 Active Fenofibrate 120 MG Tab Take 134 mg by mouth. Active atorvastatin 10 MG tablet Take 10 mg by mouth daily. Active losartan (COZAAR) 25 MG tablet Take 1 tablet (25 mg total) by mouth daily. 08/27/2024 Active rosuvastatin (CRESTOR) 10 MG tablet Take 1 tablet (10 mg total) by mouth daily. Active Active Problems Problem Noted Date Diagnosed Date Impaired fasting glucose 11/28/2020 Hyperlipidemia 11/22/2019 Stage 3a chronic kidney disease 12/25/2018 Hypercholesterolemia 03/12/2015 Monoclonal gammopathy 12/12/2014 Encounters Date Type Department Care Team Description 11/22/2024 10:35 AM CDT - 11/22/2024 11:59 PM CDT Hospital Encounter [facility] [address] [place] [address] Caitlin Parkinson FNP Discharge Disposition: Home or Self Care (Routine Discharge) 11/22/2024 10:00 AM CDT Office Visit [facility] [address] [facility] [place] [address] Caitlin Parkinson, BUSINESS PLANNING ANALYST Hip Pain (Right; sharp pain on and off since yesterday, pt states she was sitting at work and it felt like she had gotten stabbed by a knife, pt states today she is experiencing the stabbing pain every 25 mins or so. //Pt states she took an old prescription pain pill pt sates she doesn't know what it was but I slept throughout the night) 11/22/2024 Results Follow-Up [facility] [address] [facility] [place] [address] Caitlin Parkinson FNP XR HIP RT 2V 11/22/2024 Travel from Last 3 Months Immunizations Immunization Administration Dates Next Due FLUAD (IIV, Trivalent, 0.5 M L Pre-filled Syringe) 12/30/2017 Fluad influenza vaccine, Andrea drivalent (aIIV4), Inactivated, adjuvanted, preservative free, 0.5 mL,IM use 12/30/2017 Fluzone High Dose (IIV, triv alent, 0.5mL) 11/11/2023,12/06/2018,11/28/2015 Fluzone High Dose - >Age 65 (Prefilled Syringe) 01/01/2022 Influenza (Afluria - Preserv ative Free) 11/27/2019 Influenza (Generic) 11/27/2019, 7,01/01/2015,2013,11/25/2012 Influenza Adult (Generic) 11/25/2022 MODERNA COVID-19 (12+) MRNA, LNP-S, PF, 100 MCG/ 0.5 ML DOSE 05/16/2020,04/18/2020 Pneumococcal (Pneumovax 23) 11/12/2020, 8,06/01/2016 Pneumococcal (Prevnar 13) 11/27/2019,03/11/2016 Social History Tobacco Use Types Packs/Day Years Used Date Smoking Tobacco: Former Cigarettes Q uit: 1990 Smokeless Tobacco: Never Tobacco Cessation:Counseling Given: No PHQ-2 Answer Date Recorded Patient Health Questionnaire-2 Score 0 11/22/2024 Comments No Sex and Gender Information Value Date Recorded Sex Assigned at Female 11/22/2024 10:06 AM CDT Legal Sex Female 4:32 PM CDT Gender Identity Female 11/22/2024 10:06 AM CDT Sexual Orientation Not on file Last Filed Vital Signs Vital Sign Reading Time Taken Comments Blood Pressure 136/70 11/22/2024 10:23 AM CDT Pulse 65 11/22/2024 9:57 AM CDT Temperature 36.6 C (97.9 F) 11/22/2024 9:57 AM CDT Respiratory Rate 16 11/22/2024 9:57 AM CDT Oxygen Saturation 95% 11/22/2024 9:57 AM CDT Inhaled Oxygen Concentration - - Weight 81.6 kg (180 lb) 11/22/2024 9:57 AM CDT Height 167.6 cm (5' 6) 11/22/2024 9:57 AM CDT Body Mass Index 29.05 11/22/2024 9:57 AM CDT Plan of Treatment Health Maintenance Due Date Last Done Comments Colorectal Cancer Screening Colonoscopy (10 Years) 1950 Hepatitis C 1968 DTaP, Tdap and Td Vaccines (1 - Tdap) 1969 Zoster Vaccines (1 of 2) 2000 Annual Medicare Wellness Visit 06/18/2015 Dexa Scan (General) 06/18/2015 Mammogram Screening 07/16/2023 07/15/2021 COVID-19 Vaccine ( season) 2024 11/11/2023, 12/03/2022, 04/23/2022, Additional history exists Influenza Adult (#1) 2024 11/11/2023, 11/25/2022, 01/01/2022, Additional history exists RSV Immunization or 60+ Years (1 - 1-dose 75+ series) 2025 Pneumococcal Vaccine: 50+ Years Completed 11/12/2020, 11/27/2019, 04/22/2017, Additional history exists PHQ-2 (Physician [place]) Completed 11/22/2024 Hepatitis A Vaccines Aged Out No long er eligible based on patient's age to complete this topic Meningococcal B Vaccine Aged Out No l onger eligible based on patient's age to complete this topic Meningococcal Vaccine Aged Out No lauren pieter eligible based on patient's age to complete this topic RSV Immunizations Under 20 Months Aged Out No longer eligible based on patient's age to complete this topic Procedures Procedure Name Priority Date/Time Associated Diagnosis Comments HEALTH FAIR VITAMIN D 25-OH Routine 01/01/2025 6:00 AM CDT [facility]IR WITH LIPID Routine 01/01/2025 6:00 AM CDT [facility] HEMOGLOBIN A1C Routine 01/01/2025 6:00 AM CDT XR HIP RT 2V Routine 11/22/2024 10:52 AM CDT Lateral pain of right hip MG SCREENING W SUMIT JEFF DIGI Routine 07/15/2021 9:20 AM CDT Encounter for screening mammogram for malignant neoplasm of breast from Last 3 Months or Most Recently Relevant to Health Maintenance Results * (ABNORMAL) HEALTH FAIR WITH LIPID (01/01/2025 6:00 AM CDT) GLUCOSE 174(H) 70 - 99 MG/DL 01/01/2025 7:40 PM CDT [facility] BUN 18 7 - 18 MG/DL 01/01/2025 7:40 PM CDT [facility] SODIUM S/P/B 142 136 - 145 MMOL/L 01/01/2025 7:40 PM CDT [facility] POTASSIUM S/P/B 4.3 3.5 - 5.1 MMOL/L 01/01/2025 7:40 PM CDT [facility] CHLORIDE S/P/B 110 97 - 115 MMOL/L 01/01/2025 7:40 PM CDT [facility] CO2 25.3 21 - 32 MMOL/L 01/01/2025 7:40 PM CDT [facility] CREATININE S/P/B 1.25(H) 0.55 - 1.02 MG/DL 01/01/2025 7:40 PM CDT [facility] CALCIUM S/P/B 9.1 8.5 - 10.1 MG/DL 01/01/2025 7:40 PM T [facility] ALBUMIN S/P/B 3.3(L) 3.4 - 5.0 G/DL 01/01/2025 7:40 PM CDT [facility] TOTAL PROTEIN S/P/B 6.6 6.4 - 8.2 G/DL 01/01/2025 7:40 PM CDT [facility] BILIRUBIN TOTAL S/P/B 0.5 0.2 - 1.2 MG/DL 01/01/2025 7:40 PM CDT [facility] Comment: THIS ASSAY IS NOT RECOMMENDED FOR PATIENTS UNDERGOING TREATMENT WITH ELTROMBOPAG DUE TO THE POTENTIAL FOR FALSELY ELEVATED RESULTS. ALT 26 14 - 55 U/L 01/01/2025 7:40 PM T [facility] AST 24 15 - 37 U/L 01/01/2025 7:40 PM [facility] ALKALINE PHOSPHATASE S/P/B 43(L) 50 - 136 U/L 01/01/2025 7:40 PM T [facility] A/G RATIO 1.0 1.0 - 2.0 RATIO 01/01/2025 7:40 PM T [facility] GFR ESTIMATE 45(L) >90 ML/MIN/1. 73 M2 01/01/2025 7:40 PM T [facility] Comment: NOTE: eGFR is not calculated for patients <18 years of age or gender unknown. This is an estimated GFR calculation using the new CKD EPI creatinine equation without race and so does not require a correction factor for race. This estimated GFR should not be used for calculating drug doses. CHOLESTEROL 154 <200 MG/DL 01/01/2025 7:40 PM CDT [facility] TRIGLYCERIDES 373(H) <150 MG/DL 01/01/2025 7:40 PM [facility] HDL 42 >40.0 MG/DL 01/01/2025 7:40 PM [facility] LDL (CALCULATED) 37 <100 MG/DL 01/01/2025 7:40 PM [facility] Comment:CALCULATED USING THE FRIEDEWALD EQUATION NON HDL CHOLESTEROL 112 <130 MG/DL 01/01/2025 7:40 PM [facility] CHOL/HDL RATIO 3.7 0.0 - 4.5 01/01/2025 7:40 PM [facility] VLDL CALCULATION 75(H) 5 - 55 MG/DL 01/01/2025 7:40 PM [facility] LIPID INTERPRETATION 01/01/2025 7:40 PM [facility] Comment: NIH CONCENSUS REPORT RECOMMENDATIONS: ADULT CHILD LOW RISK: CHOLESTEROL <200 <170 TRIGLYCERIDE <150 --- HDL >=60 --- LDL <100 <110 BORDERLINE: CHOLESTEROL 200-239 170-199 TRIGLYCERIDE 150-199 --- HDL 40-59 --- LDL 100-159 110-129 HIGH RISK: CHOLESTEROL >=240 >=200 TRIGLYCERIDE >=200 --- HDL <40 --- LDL >=160 >=130 TSH 2.340 0.358 - 3.74 uIU/ML 01/01/2025 7:40 PM [facility] Comment: HIGH DOSES OF BIOTIN MAY INTERFERE WITH THIS TEST RESULT. CORRELATION TO CLINICAL HISTORY AND PRESENTATION RECOMMENDED. WBC 8.96 4.50 - 11.00 x10'3/uL 01/01/2025 8:37 AM T [facility] RBC 5.00 4.00 - 5.20 x10'6/uL 01/01/2025 8:37 AM T [facility] HGB 14.9 12.0 - 16.0 G/DL 01/01/2025 8:37 AM CDT [facility] HCT 43.6 38.0 - 48.0 % 01/01/2025 8:37 AM CDT [facility] MCV 87.2 80.0 - 100.0 FL 01/01/2025 8:37 AM CDT [facility] MCH 29.8 26.0 - 34.0 PG 01/01/2025 8:37 AM CDT [facility] MCHC 34.2 31.0 - 37.0 G/DL 01/01/2025 8:37 AM CDT [facility] PLT 259 130 - 400 x10'3/uL 01/01/2025 8:37 AM CDT [facility] 01/01/2025 6:00 AM CDT us Jose Yañez MD LABORATORY Final Result Performing Organization Address City/[facility]/ZIP Co de Phone Number [facility] [address] [facility] [place] [address], [facility] [address] [place] [address], * (ABNORMAL) VITAMIN D, 25 OH TOTAL (01/01/2025 6:00 AM CDT) VITAMIN D 25 HYDROXY S/P/B 22(L) 30 - 100 NG/ML 01/01/2025 3:58 PM CDT [facility] 01/01/2025 6:00 AM CDT us Jose Yañez MD LABORATORY Final Result Performing Organization Address City/[facility]/ZIP Co de Phone Number [facility] [address] [place] [address], [place] [phone] * (ABNORMAL) HEMOGLOBIN A1C (01/01/2025 6:00 AM CDT) HGB A1C 6.7(H) <5.7 % 01/01/2025 3:21 PM CDT [facility] Comment: ADA GUIDELINES 2009 5.7 TO 6.4% INCREASED RISK OF DIABETES > OR = 6.5% CONSISTENT WITH DIABETES ESTIMATED AVG GLUCOSE 146 mg/dL 01/01/2025 3:21 PM CDT [facility] 01/01/2025 6:00 AM CDT Jose Yañez MD LABORATORY Final Result [facility] [address] [place] [address], * XR HIP RT 2V (11/22/2024 10:52 AM CDT) Anatomical Region Laterality Modality Hip Computed Tomogra phy 11/22/2024 1:51 PM CDT Impressions 11/22/2024 1:53 PM CDT =====IMPRESSION:===== No acute bony abnormality. Minimal spurring from the acetabulum is noted. Ordered By: CAITLIN PARKINSON Interpreted By: Keyon Kirk MD, 11/22/2024 1:51 PM Narrative 11/22/2024 1:53 PM CDT [address] [place] [address] EXAMINATION: Right hip, 2 views and AP pelvis EXAM DATE/TIME: 11/22/2024 10:41 AM REASON FOR EXAM: lateral hip pain, severe episodes for 2 days COMPARISON: 12/12/2014 TECHNIQUE: AP and frog views of the right hip and AP pelvis were obtained. FINDINGS: No acute fracture or dislocation. No destructive osseous or sclerotic lesions. Hip joint space preserved. No radiopaque foreign bodies. Minimal spurring from the acetabulum is noted. Procedure Note Keyon Kirk MD - 11/22/[address] [place] [address] EXAMINATION: Right hip, 2 views and AP pelvis EXAM DATE/TIME: 11/22/2024 10:41 AM REASON FOR EXAM: lateral hip pain, severe episodes for 2 days COMPARISON: 12/12/2014 TECHNIQUE: AP and frog views of the right hip and AP pelvis wereobtained. FINDINGS: No acute fracture or dislocation. No destructive osseous orsclerotic lesions. Hip joint space preserved. No radiopaque foreignbodies. Minimal spurring from the acetabulum is noted. =====IMPRESSION:===== No acute bony abnormality. Minimal spurring from the acetabulum is noted. Ordered By: CAITLIN PARKINSON Interpreted By: Keyon Kirk MD, 11/22/2024 1:51 PM us Caitlin Parkinson BUSINESS PLANNING ANALYST GENERAL IMAGING Final Result * MG SCREENING W SUMIT JEFF DIGI (07/15/2021 9:20 AM CDT) Anatomical Region Laterality Modality Breast Bilateral Computed Tomogra phy, Other 07/15/2021 4:12 PM CDT Narrative 07/15/2021 4:16 PM CDT BILATERAL DIGITAL SCREENING MAMMOGRAPHY WITH COMPUTER-AIDED DETECTION AND 3-D TOMOSYNTHESIS 07/15/2021 8:57 AM HISTORY: No complaints listed referable to either breast. Screening examination. Breast cancer in mother in her 40s. Breast cancer in paternal grandmother at unspecified age. Bilateral mastectomy for malignancy and daughter at age 48. FINDINGS: Digital 2-D mammography and 3-D tomosynthesis performed of both breasts. The breast tissue is heterogeneously dense, which may obscure small masses. Breast parenchymal pattern similar to prior studies reviewed dating back to 11/26/2016. Benign-appearing calcification and benign-appearing nodularity. No specific finding of malignancy identified in either breast. IMPRESSION: No radiographic evidence of malignancy identified in either breast. BI-RADS Category: Category 2 - benign findings. Mammography recheck suggested in one year. A) A negative report should not delay a biopsy if a dominant or clinically suspicious mass is present. B) Adenosis and dense breasts may obscure an underlying neoplasm. C) Study interpreted with computer-aided detection. MQSA BI-RADS Categories: Category 0 - needs additional imaging evaluation. Category 1 - negative. Category 2 - benign findings. Category 3 - probably benign findings, but short interval followup is recommended. Category 4 - suspicious abnormality-biopsy should be considered. Category 5 - highly suggestive of malignancy and appropriate action should be taken. Ordered By: MIKO MOROCHO Interpreted By: Mike Lacy, 07/15/2021 4:12 PM Miko Morocho MD MAMMO Final Result from Last 3 Months or Most Recently Relevant to Health Maintenance Insurance MEDICARE MEDICARE AET[employer] Care Teams Pediatric Licensed Practical Nurse Relationship Specialty Start Date End Date Miko Morocho MD [address] [place], [place] [phone] PCP - General FAMILY PRACTICE 02/04/18
--- OUTSIDE RECORDS SUMMARY | 2025-02-05 17:01 | XMS_ITS | Clinical Summary ---
Author Organization [facility] Address [address] [place] [address] Phone Care Team Providers Care Armored Vehicle Officer Name Role Phone Joni Morocho MD Primary Care Provider [phone] Allergies No known active allergies Medications atorvastatin [...] 165.1 cm (5' 5) 01/29/2016 3:09 PM [facility] Body Mass Index 33.12 01/29/2016 3:09 PM [facility] Plan of Treatment Health Maintenance Due Date [...] of Phone Billing Address Personal/Family Self 1950 [phone] (Work) [address] [place] [address] MEDICARE [employer] MEDICARE SUPP [employer]UR[employer] Care Teams Armored Vehicle Officer Relationship Specialty Start Date End Date Joni Morocho MD [address] [place] [address] PCP - General Family Medicine 01/28/16
== END 2025-02-05 15:21 | disposition home or self-care (01) ==
PROVIDERS: PCP Family Medicine; Visit Provider Surgery
DX: E11.9 Type 2 diabetes mellitus without complications (principal); D64.9 Anemia, unspecified
CPT/HCPCS: 36415; 80048; 85027

== ENCOUNTER 2025-02-12 12:35 | Outpatient (CLI) | payer MEDICARE, SELFPAY ==
[2025-02-12 13:09] LABS: Hematocrit 42.1 % (37.0-47.0); Hemoglobin 14.1 g/dL (12.0-15.0); Immature Granulocyte Percent A 0.6 % (0-0.5); Lymphocytes Absolute Auto 2.72 K/mm3 (0.9-3.2); Mean Corpuscular HGB Conc 33.5 g/dl (32-36); Mean Corpuscular Hemoglobin 29.7 pg (26-34); Mean Corpuscular Volume 88.8 fl (80-100); Nucleated Red Blood Cells Absolute Auto 0.000 K/mm3 (0.0-0.012); Nucleated Red Blood Cells Perc 0.0 % (0.0-0.2); Platelet Count Result 299 k/mm3 (150-375); Red Blood Count 4.74 M/mm3 (4.2-5.4); White Blood Count 10.6 K/mm3 (4.5-10.0)
--- OUTSIDE RECORDS SUMMARY | 2025-02-12 13:11 | XMS_ITS | Clinical Summary ---
Author Organization [facility] Address [address] [place] [address] Phone Care Team Providers Care Nocturnist Physician Name Role Phone Joni Morocho MD Primary Care Provider [phone] Allergies No known active allergies Medications rosuvastatin [...] Description 01/01/2025 12:20 PM CDT Office Visit [facility] [address], [address] [place] [address] Wally Arana MD Stage 3a [...] on file Legal Sex Female 8:53 AM [facility] Gender Identity Not on file Sexual Orientation [...] Description 12/31/2025 12:20 PM CDT Office Visit [facility] [address], [address] [place], [place] [phone] [place] [address] [place] [address] Health Maintenance Due Date Last Done Comments [...] MEDICARE PM [address] [address] [address] Care Teams Nocturnist Physician Relationship Specialty Start Date End Date Joni Morocho MD [address] [place] [address] PCP - General 09/28/18
--- OUTSIDE RECORDS SUMMARY | 2025-02-12 13:11 | XMS_ITS | Clinical Summary ---
Author Organization [facility] Address [address] [place] [address] Care Team Providers Care Level Vial Inside Grinder Name Role Phone Miko Morocho MD Primary Care Provider [phone] Allergies Active Allergy Reactions Criticality Noted Date [...] - 11/22/2024 11:59 PM CDT Hospital Encounter [facility] [address] [place] [address] Caitlin Parkinson FNP Discharge Disposition: Home or Self Care (Routine Discharge) 11/22/2024 10:00 AM CDT Office Visit [address] [place] [address] Caitlin Parkinson, TRACK PRODUCTION ENGINEER Hip Pain (Right; sharp pain on and [...] slept throughout the night) 11/22/2024 Results Follow-Up [address] [place] [address] Caitlin Parkinson, TRACK PRODUCTION ENGINEER XR HIP RT 2V 11/22/2024 Travel from [...] 11/27/2019, 04/22/2017, Additional history exists PHQ-2 (Physician [place]) Completed 11/22/2024 Hepatitis A Vaccines Aged Out [...] - 99 MG/DL 01/01/2025 7:40 PM CDT [facility] BUN 18 7 - 18 MG/DL 01/01/2025 7:40 PM CDT [facility] SODIUM S/P/B 142 136 - 145 MMOL/L 01/01/2025 7:40 PM CDT [facility] POTASSIUM S/P/B 4.3 3.5 - 5.1 MMOL/L 01/01/2025 7:40 PM CDT [facility] CHLORIDE S/P/B 110 97 - 115 MMOL/L 01/01/2025 7:40 PM CDT [facility] CO2 25.3 21 - 32 MMOL/L 01/01/2025 7:40 PM CDT [facility] CREATININE S/P/B 1.25(H) 0.55 - 1.02 MG/DL 01/01/2025 7:40 PM CDT [facility] CALCIUM S/P/B 9.1 8.5 - 10.1 MG/DL 01/01/2025 7:40 PM CDT [facility] ALBUMIN S/P/B 3.3(L) 3.4 - 5.0 G/DL 01/01/2025 7:40 PM CDT [facility] TOTAL PROTEIN S/P/B 6.6 6.4 - 8.2 G/DL 01/01/2025 7:40 PM CDT [facility] BILIRUBIN TOTAL S/P/B 0.5 0.2 - 1.2 MG/DL 01/01/2025 7:40 PM CDT [facility] Comment: THIS ASSAY IS NOT RECOMMENDED FOR PATIENTS UNDERGOING TREATMENT WITH ELTROMBOPAG DUE TO THE POTENTIAL FOR FALSELY ELEVATED RESULTS. ALT 26 14 - 55 U/L 01/01/2025 7:40 PM CDT [facility] AST 24 15 - 37 U/L 01/01/2025 7:40 PM T [facility] ALKALINE PHOSPHATASE S/P/B 43(L) 50 - 136 U/L 01/01/2025 7:40 PM T [facility] A/G RATIO 1.0 1.0 - 2.0 RATIO 01/01/2025 7:40 PM T [facility] GFR ESTIMATE 45(L) >90 ML/MIN/1. 73 M2 01/01/2025 7:40 PM T [facility] Comment: NOTE: eGFR is not calculated for patients <18 years of age or gender unknown. This is an estimated GFR calculation using the new CKD EPI creatinine equation without race and so does not require a correction factor for race. This estimated GFR should not be used for calculating drug doses. CHOLESTEROL 154 <200 MG/DL 01/01/2025 7:40 PM CDT [facility] TRIGLYCERIDES 373(H) <150 MG/DL 01/01/2025 7:40 PM T [facility] HDL 42 >40.0 MG/DL 01/01/2025 7:40 PM [facility] LDL (CALCULATED) 37 <100 MG/DL 01/01/2025 7:40 PM T [facility] Comment:CALCULATED USING THE FRIEDEWALD EQUATION NON HDL CHOLESTEROL 112 <130 MG/DL 01/01/2025 7:40 PM T [facility] CHOL/HDL RATIO 3.7 0.0 - 4.5 01/01/2025 7:40 PM [facility] VLDL CALCULATION 75(H) 5 - 55 MG/DL 01/01/2025 7:40 PM T [facility] LIPID INTERPRETATION 01/01/2025 7:40 PM [facility] Comment: NIH CONCENSUS REPORT RECOMMENDATIONS: ADULT CHILD LOW RISK: CHOLESTEROL <200 <170 TRIGLYCERIDE <150 --- HDL >=60 --- LDL <100 <110 BORDERLINE: CHOLESTEROL 200-239 170-199 TRIGLYCERIDE 150-199 --- HDL 40-59 --- LDL 100-159 110-129 HIGH RISK: CHOLESTEROL >=240 >=200 TRIGLYCERIDE >=200 --- HDL <40 --- LDL >=160 >=130 TSH 2.340 0.358 - 3.74 uIU/ML 01/01/2025 7:40 PM [facility] Comment: HIGH DOSES OF BIOTIN MAY INTERFERE WITH THIS TEST RESULT. CORRELATION TO CLINICAL HISTORY AND PRESENTATION RECOMMENDED. WBC 8.96 4.50 - 11.00 x10'3/uL 01/01/2025 8:37 AM T [facility] RBC 5.00 4.00 - 5.20 x10'6/uL 01/01/2025 8:37 AM T [facility] HGB 14.9 12.0 - 16.0 G/DL 01/01/2025 8:37 AM CDT [facility] HCT 43.6 38.0 - 48.0 % 01/01/2025 8:37 AM CDT [facility] MCV 87.2 80.0 - 100.0 FL 01/01/2025 8:37 AM CDT [facility] MCH 29.8 26.0 - 34.0 PG 01/01/2025 8:37 AM CDT [facility] MCHC 34.2 31.0 - 37.0 G/DL 01/01/2025 8:37 AM CDT [facility] PLT 259 130 - 400 x10'3/uL 01/01/2025 8:37 AM CDT [facility] 01/01/2025 6:00 AM CDT us Jose Yañez MD LABORATORY Final Result Performing Organization Address City/[facility]/ZIP Co de Phone Number [facility] [address] [facility] [place] [address], [facility] [address] [place] [address], [place] [phone] * (ABNORMAL) VITAMIN D, 25 [place] TOTAL (01/01/2025 6:00 AM CDT) VITAMIN D 25 HYDROXY S/P/B 22(L) 30 - 100 NG/ML 01/01/2025 3:58 PM CDT [facility] 01/01/2025 6:00 AM CDT us Jose Yañez MD LABORATORY Final Result Performing Organization Address City/[facility]/ZIP Co de Phone Number [facility] [address] [place] [address], [place] [phone] * (ABNORMAL) HEMOGLOBIN A1C (01/01/2025 6:00 AM CDT) HGB A1C 6.7(H) <5.7 % 01/01/2025 3:21 PM CDT [facility] Comment: ADA GUIDELINES 2010 5.7 TO 6.4% INCREASED RISK OF DIABETES > OR = 6.5% CONSISTENT WITH DIABETES ESTIMATED AVG GLUCOSE 146 mg/dL 01/01/2025 3:21 PM CDT [facility] 01/01/2025 6:00 AM CDT Jose Yañez MD LABORATORY Final Result [facility] [address] [place] [address], * XR HIP RT 2V (11/22/2024 10:52 AM CDT) Anatomical Region Laterality Modality Hip Computed Tomogra phy 11/22/2024 1:51 PM CDT Impressions 11/22/2024 1:53 PM CDT =====IMPRESSION:===== No acute bony abnormality. Minimal spurring from the acetabulum is noted. Ordered By: CAITLIN PARKINSON Interpreted By: Keyon Kirk MD, 11/22/2024 1:51 PM Narrative 11/22/2024 1:53 PM CDT [address] [place] [address] EXAMINATION: Right hip, 2 views and AP [...] Procedure Note Keyon Kirk MD - 11/22/[address] [place] [address] EXAMINATION: Right hip, 2 views and AP [...] By: Keyon Kirk MD, 11/22/2024 1:51 PM Caitlin Parkinson TRACK PRODUCTION ENGINEER GENERAL IMAGING Final Result * MG SCREENING [...] Maintenance Insurance MEDICARE MEDICARE [employer] Care Teams Level Vial Inside Grinder Relationship Specialty Start Date End Date Miko Morocho MD [address] [place] [address] PCP - General FAMILY PRACTICE 02/04/18
--- OUTSIDE RECORDS SUMMARY | 2025-02-12 13:11 | XMS_ITS | Clinical Summary ---
Author Organization 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
[2025-02-12 13:32] LABS: Alanine Aminotransferase 24 U/L (6-35); Albumin Level 4.4 g/dL (3.5-5.1); Alkaline Phosphatase 48 U/L (38-126); Anion Gap 9 mmol/L (4-12); Aspartate Amino Transferase 30 U/L (14-36); Bilirubin,Total 0.5 mg/dL (0.2-1.3); Blood Urea Nitrogen 24 mg/dL (7-17); Calcium 9.8 mg/dL (8.4-10.2); Carbon Dioxide 26 mmol/L (22-30); Chloride 105 mmol/L (98-107); Estimated Glomerular Filt Rate 42; Glucose 193 mg/dL (65-110); Potassium 4.0 mmol/L (3.4-5.0); Sodium 140 mmol/L (137-145); Total Protein 7.5 g/dL (6.3-8.2)
== END 2025-02-12 12:36 | disposition home or self-care (01) ==
PROVIDERS: PCP Family Medicine; Visit Provider Surgery
DX: D72.829 Elevated white blood cell count, unspecified (principal)
CPT/HCPCS: 36415; 80053; 85025